=== PATIENT | male | born 1980 | race Caucasian/White ===

== ENCOUNTER 2022-01-06 14:26 | Emergency (ER) | payer OTHER ==
[~2022-01-06] VITALS: Ht 180.3 cm; Wt 111.1 kg
[2022-01-06] MEDS ORDERED: AMOCLA875 PO (16:47)
[2022-01-06] MEDS ORDERED: CETI5 PO (16:50)
[2022-01-06] MEDS ORDERED: BUPR150ER PO (16:50)
[2022-01-06] MEDS ORDERED: Vitamin B-Comp1 EACH PO (16:51)
[2022-01-06] MEDS ORDERED: Lisinopril2.5 MG PO (16:51)
[2022-01-06] MEDS ORDERED: GABA300 PO (16:51)
[2022-01-06] MEDS ORDERED: SILD25T PO (16:51)
[2022-01-06] MEDS ORDERED: OMEP20ER PO (16:51)
[2022-01-06] MEDS ORDERED: GABA100 (16:51)
[2022-01-06] MEDS ORDERED: FOLI1 PO (16:52)
== END 2022-01-06 16:57 | disposition home or self-care (01) ==
LOC: ER 14:26
DX: K04.7 Periapical abscess without sinus (principal)
CPT/HCPCS: 99283